=== PATIENT | female | born 1960 ===

== ENCOUNTER 2018-10-20 11:48 | Emergency (ER) | payer MEDICAID, OTHER ==
[2018-10-20 11:59] VITALS: BMI 28.5
[2018-10-20 12:01] VITALS: TEMP 97.9
[2018-10-20 12:26] LABS: SQUAMOUS EPITHIAL 1 /hpf (0-5); URINE BACTERIA RARE (<OCC); URINE BILIRUBIN NEGATIVE (NEGATIVE); URINE BLOOD NEGATIVE (NEGATIVE); URINE CLARITY Clear (Clear); URINE COLOR Straw (YELLOW); URINE GLUCOSE (UA) NORMAL (Normal); URINE PROTEIN NEGATIVE (NEGATIVE); URINE UROBILINOGEN NORMAL mg/dL (0.2-1.0)
[2018-10-20 12:27] LABS: URINE LEUKOCYTE ESTERASE TRACE Leu/uL (Negative)
[2018-10-20] MEDS ORDERED: DiphenhydrAMINE 50 mg/ml Inj IVP STA (13:03)
[2018-10-20] MEDS ORDERED: Sodium Chloride 0.9% 1,000 ML IV ONE (13:03)
[2018-10-20] MEDS ORDERED: DiphenhydrAMINE 50 mg/ml Inj ONE (13:12)
[2018-10-20 13:24] LABS: BASO # 0.1 K/uL (0.0-0.2); EOS # 0.1 K/uL (0.0-0.7); HEMOGLOBIN 13.8 g/dL (11.0-16.0); LYMPH # 1.5 K/uL (1.0-4.3); LYMPH % 21.5 % (20.0-40.0); MEAN CORPUSCULAR HEMOGLOBIN 28.1 pg (27.0-31.0); MEAN CORPUSCULAR HGB CONC 33.5 g/dL (33.0-37.0); MEAN PLATELET VOLUME 8.4 fL (7.2-11.7); MONO # 0.5 K/uL (0.0-0.8); MONO % 7.7 % (0.0-10.0); NEUT # 4.7 K/uL (1.8-7.0); NEUT % 67.8 % (50.0-75.0); RBC 4.9 Mil/uL (3.80-5.20)
[2018-10-20 13:40] LABS: ALB/GLOB RATIO 1.4 (1.0-2.1); ALBUMIN 4.7 g/dL (3.5-5.0); BLOOD UREA NITROGEN 12 mg/dL (7-17); CALCIUM 9.5 mg/dl (8.6-10.4); GFR NON-AFRICAN AMERICAN > 60
[2018-10-20 13:46] LABS: ALT/SGPT 28 U/L (9-52); AST/SGOT 37 U/L (14-36)
--- NOTE | 2018-10-20 14:21 | C.PDOC ---
History Of Present Illness 58 year old female, whose past medical history includes Lupus, presents to the ED for evaluation of congestion which started yesterday and dizziness since 0400 today. Patient reports a room spinning sensation when moving her head. She also reports nausea, vomiting, headache, and numbness to his legs. Patient denies abdominal pain and back pain at this time. Time Seen by Provider: 10/20/18 12:16 Chief Complaint (Nursing): Dizziness/Lightheaded History Per: Patient History/Exam Limitations: no limitations Onset/Duration Of Symptoms: Hrs Current Symptoms Are (Timing): Still Present Associated Symptoms Preceding Syncopal Episode: No Predromal Symptoms (Sudden Onset), Vertigo Worse With Change In Head Position Fall Associated With With Symptoms: No Past Medical History Reviewed: Historical Data, Nursing Documentation, Vital Signs Vital Signs: Last Vital Signs Temp 97.9 F 10/20/18 11:55 Pulse 64 10/20/18 11:55 Resp 20 10/20/18 11:55 BP 146/84 10/20/18 11:55 Pulse Ox 97 10/20/18 11:55 - Medical History PMH: No Chronic Diseases Surgical History: No Surg Hx Family History: States: Unknown Family Hx - Social History Hx Alcohol Use: No Hx Substance Use: No Review Of Systems Constitutional: Positive for: Weakness ENT: Positive for: Nose Congestion Gastrointestinal: Positive for: Nausea, Vomiting. Negative for: Abdominal Pain Musculoskeletal: Negative for: Back Pain Neurological: Positive for: Headache Physical Exam - Physical Exam Appears: Non-toxic, No Acute Distress Skin: Normal Color, Warm, Dry, No Pale, No Rash Head: Atraumatic, Normacephalic Eye(s): bilateral: Normal Inspection Ear(s): Left: Other (fluid noted ), Right: Normal Oral Mucosa: Moist Neck: Supple Chest: Symmetrical, No Deformity, No Tenderness Cardiovascular: Rhythm Regular, No Murmur Extremity: Normal ROM, Capillary Refill (less than 2 seconds ) Neurological/Psych: Oriented x3, Normal Speech, Normal Cognition ED Course And Treatment - Laboratory Results Result Diagrams: 10/20/18 13:16 10/20/18 13:16 O2 Sat by Pulse Oximetry: 97 (on RA) Pulse Ox Interpretation: Normal Medical Decision Making Medical Decision Making: Progress: Bloodwork, urinalysis, CXR ordered and reviewed. Benadryl IVP, Reglan IVP, and IV Fluids given. On re-exam, the patient is resting comfortably and improvement of symptoms. Lungs are CTA, heart is RRR, abdomen is soft, non-tender and tolerating PO well. Follow up with the medical doctor within 1-2 days. Return if worsened. Disposition - Disposition Referrals: [facility] [Outside] Disposition: HOME/ ROUTINE Disposition Time: 15:10 Condition: STABLE Additional Instructions: Follow up with the medical doctor within 1-2 days. Return if worsened. Prescriptions: Loratadine [Claritin] 10 mg PO DAILY #10 tab Meclizine HCl 25 mg PO TID PRN #25 tablet PRN Reason: Dizziness Instructions: Vertigo (a Type of Dizziness) Forms: [employer] (Jamaican) - Clinical Impression Clinical Impression: Vertigo - PA / SQL TECH / Resident Statement MD/DO has reviewed & agrees with the documentation as recorded. - Scribe Statement The provider has reviewed the documentation as recorded by the Scribe (Caprice Guzman) All medical record entries made by the Scribe were at my direction and personally dictated by me. I have reviewed the chart and agree that the record accurately reflects my personal performance of the history, physical exam, medical decision making, and the department course for this patient. I have also personally directed, reviewed, and agree with the discharge instructions and disposition.
[2018-10-20 15:21] VITALS: BP 132/81; PULSE 79; RESP 16
[2018-10-20 15:33] VITALS: O2SAT 97
--- NOTE | 2018-10-20 16:47 | RAD ---
Date of service: 10/20/2018 PROCEDURE: CHEST RADIOGRAPH, 1 VIEW HISTORY: abd pain COMPARISON: None available. FINDINGS: LUNGS: Clear. Lung volumes shallow PLEURA: No pneumothorax or pleural fluid seen. CARDIOVASCULAR: There is apparent presence of aortic atherosclerotic calcification on x-ray. Mild cardiomegaly. Probable top-normal pulmonary venous status OSSEOUS STRUCTURES: No significant abnormalities. VISUALIZED UPPER ABDOMEN: Normal. OTHER FINDINGS: None. IMPRESSION: No acute pulmonary pathology. Other findings as above.
--- NOTE | 2018-10-21 12:27 | CARD ---
APPROVED REPORT Date of service: 10/20/2018 EKG Measurement Heart [id number] <Conclusion> Normal sinus rhythm Normal ECG
== END 2018-10-20 15:20 | disposition home or self-care (01) ==
LOC: C.ER 11:48
DX: R42 Dizziness and giddiness (principal)
CPT/HCPCS: 71045; 80053; 81001; 85025; 93005; 96361; 96374; 96375; 99285; J1200; J2765; J7030

== ENCOUNTER 2019-03-20 17:44 | Emergency (ER) | payer MEDICAID, OTHER ==
[2019-03-20 17:45] VITALS: BMI 28.5
[2019-03-20 18:17] VITALS: RESP 18
[2019-03-20] MEDS ORDERED: Aspirin 325 mg EC Tablets PO STA (19:50)
--- NOTE | 2019-03-20 19:50 | C.PDOC ---
History Of Present Illness Patient presents to the ED c/o chest tightness. Patient states she feels like her lupus is flaring up. Patient able to speak in full sentences. Patient denies fever, chills, headache, SOB, palpitations, rash, injury, fall, trauma. Time Seen by Provider: 03/20/19 19:49 Chief Complaint (Nursing): Chest Pain History Per: Patient History/Exam Limitations: no limitations Onset/Duration Of Symptoms: Days Quality: Tightness Recent travel outside of the [place]: No Additional History Per: Patient Past Medical History Reviewed: Historical Data, Nursing Documentation, Vital Signs Vital Signs: Last Vital Signs Temp 97.7 F 03/20/19 18:14 Pulse 69 03/20/19 18:14 Resp 18 03/20/19 18:14 BP 143/73 03/20/19 18:14 Pulse Ox 96 03/20/19 18:14 - Medical History Other PMH: Lupus Surgical History: No Surg Hx Family History: States: No Known Family Hx - Social History Hx Alcohol Use: No Hx Substance Use: No - Immunization History Hx Tetanus Toxoid Vaccination: No Hx Influenza Vaccination: Yes Hx Pneumococcal Vaccination: No Review Of Systems Constitutional: Negative for: Fever, Chills Cardiovascular: Positive for: Chest Pain (tightness). Negative for: Palpitations Respiratory: Negative for: Cough, Shortness of Breath Gastrointestinal: Negative for: Nausea, Vomiting, Abdominal Pain Skin: Negative for: Rash Neurological: Negative for: Weakness, Numbness, Headache, Dizziness Physical Exam - Physical Exam Appears: Non-toxic, Other (anxious, tearfull ) Skin: Warm, Dry Head: Normacephalic Eye(s): bilateral: PERRL, EOMI, Other (lens) Neck: Supple Chest: Symmetrical, Tenderness (anterior chest wall ) Cardiovascular: Rhythm Regular Respiratory: No Rales, No Rhonchi, No Wheezing Gastrointestinal/Abdominal: Soft, No Tenderness, No Distention Extremity: Bilateral: Atraumatic, Normal Color And Temperature, Normal ROM Neurological/Psych: Oriented x3, Normal Speech, Normal Cognition Gait: Steady ED Course And Treatment - Laboratory Results Result Diagrams: 03/20/19 20:51 03/20/19 20:31 ECG: Interpreted By Me, Viewed By Me ECG Rhythm: Sinus Rhythm, Nonspecific Changes O2 Sat by Pulse Oximetry: 96 (ON RA) Pulse Ox Interpretation: Normal - Radiology CXR: Interpreted by Me, Viewed By Me CXR Interpretation: No: Infiltrates, Fracture, Pnemothorax Progress Note: Plan: - EKG. - Labs. - CXR. - Aspirin 325 mg PO. - UA Reevaluation Time: 22:39 Reassessment Condition: Improved Medical Decision Making Medical Decision Making: Upon provider reevaluation patient is feeling better, is medically stable, and requires no further treatment in the ED at this time. Patient will be discharged home with Rx for ativan . Counseling was provided and all questions were answered regarding diagnosis and need for follow up with dr torres. There is agreement to discharge plan. Return if symptoms persist or worsen. Disposition Counseled Patient/Family Regarding: Studies Performed, Diagnosis, Need For Followup, Rx Given - Disposition Referrals: Carolina Torres MD [Non-Staff] - Disposition: HOME/ ROUTINE Disposition Time: 19:50 Condition: FAIR Additional Instructions: Please return if symptoms recur Prescriptions: Lorazepam [Ativan] 0.5 mg PO BID PRN #10 tab PRN Reason: Anxiety Instructions: Anxiety, Adult (DC) Forms: [employer] (Malay) - Clinical Impression Clinical Impression: Anxiety - Scribe Statement The provider has reviewed the documentation as recorded by the Scribe Gio Gillette All medical record entries made by the Scribe were at my direction and personally dictated by me. I have reviewed the chart and agree that the record a ccurately reflects my personal performance of the history, physical exam, medical decision making, and the department course for this patient. I have also personally directed, reviewed, and agree with the discharge instructions and disposition.
[2019-03-20 20:55] LABS: BASO % 0.3 % (0.0-2.0); EOS # 0.3 K/uL (0.0-0.7); EOS % 3.9 % (0.0-4.0); HEMOGLOBIN 13.3 g/dL (11.0-16.0); LYMPH # 2.8 K/uL (1.0-4.3); LYMPH % 37.7 % (20.0-40.0); MEAN CELL VOLUME 84.1 fL (81.0-99.0); MEAN CORPUSCULAR HEMOGLOBIN 27.6 pg (27.0-31.0); MEAN CORPUSCULAR HGB CONC 32.8 g/dL (33.0-37.0); MONO # 0.8 K/uL (0.0-0.8); MONO % 10.4 % (0.0-10.0); NEUT # 3.5 K/uL (1.8-7.0); NEUT % 47.7 % (50.0-75.0); RBC 4.81 Mil/uL (3.80-5.20); RED CELL DISTRIBUTION WIDTH 13.2 % (11.5-14.5); WHITE BLOOD COUNT 7.3 K/uL (4.8-10.8)
[2019-03-20 21:08] LABS: INR 1.1; PROTHROMBIN TIME 12.3 SECONDS (9.7-12.2)
[2019-03-20 21:09] LABS: ALB/GLOB RATIO 1.3 (1.0-2.1); ALBUMIN 4.6 g/dL (3.5-5.0); ALT/SGPT 26 U/L (9-52); AST/SGOT 28 U/L (14-36); BLOOD UREA NITROGEN 12 mg/dL (7-17); CALCIUM 9.6 mg/dl (8.6-10.4); GFR NON-AFRICAN AMERICAN > 60
[2019-03-20 21:10] LABS: URINE BILIRUBIN NEGATIVE (NEGATIVE); URINE BLOOD NEGATIVE (NEGATIVE); URINE CLARITY Clear (Clear); URINE COLOR Straw (YELLOW); URINE GLUCOSE (UA) NORMAL (Normal); URINE LEUKOCYTE ESTERASE NEG Leu/uL (Negative); URINE PROTEIN NEGATIVE (NEGATIVE); URINE UROBILINOGEN NORMAL mg/dL (0.2-1.0)
[2019-03-20 22:49] VITALS: BP 129/83; PULSE 59; TEMP 97.5; O2SAT 97
--- NOTE | 2019-03-21 09:13 | RAD ---
Chest x-ray single frontal view HISTORY: Chest pain. Comparison: 10/20/2018 Findings: Mild venous congestion. Bilateral hilar prominence. Tortuous aorta with atherosclerotic calcification at the aortic knob. Degenerative changes in the spine and shoulders. Impression: Mild venous congestion. Bilateral hilar prominence. Tortuous aorta with atherosclerotic calcification at the aortic knob.
--- NOTE | 2019-03-21 12:39 | CARD ---
APPROVED REPORT Date of service: 03/20/2019 EKG Measurement Heart [id number] <Conclusion> Normal sinus rhythm Normal ECG
== END 2019-03-20 22:58 | disposition home or self-care (01) ==
LOC: C.ER 17:44
DX: F41.9 Anxiety disorder, unspecified (principal); M32.9 Systemic lupus erythematosus, unspecified
CPT/HCPCS: 71045; 80053; 81001; 84484; 85025; 85610; 85730; 93005; 96374; 99285; J1885

== ENCOUNTER 2019-03-27 07:44 | Outpatient (CLI) | payer OTHER | END 2019-03-27 07:45 | disposition home or self-care (01) | LOC: C.LAB 07:44 | DX: E66.3 Overweight (principal) ==

== ENCOUNTER 2019-04-01 07:56 | Outpatient (CLI) | payer OTHER | END 2019-04-01 07:57 | disposition home or self-care (01) | LOC: C.CARD 07:56 | DX: R00.2 Palpitations (principal) ==

== ENCOUNTER 2019-04-06 16:05 | Outpatient (CLI) | payer OTHER | END 2019-04-06 16:06 | disposition home or self-care (01) | LOC: C.LAB 16:05 | DX: R94.6 Abnormal results of thyroid function studies (principal) ==

== ENCOUNTER 2019-04-07 09:56 | Outpatient (CLI) | payer OTHER | END 2019-04-07 09:57 | disposition home or self-care (01) | LOC: C.DIABED 09:56 | DX: E78.5 Hyperlipidemia, unspecified (principal); R31.9 Hematuria, unspecified ==

== ENCOUNTER 2019-04-17 11:45 | Emergency (ER) | payer OTHER ==
[2019-04-17 11:46] VITALS: BMI 28.5
[2019-04-17 11:57] VITALS: RESP 20; TEMP 97.8; O2SAT 99
--- NOTE | 2019-04-17 12:03 | C.PDOC ---
History Of Present Illness 58 yr old F w/ hx of HLD, lupus, hysterectomy p/w suprapubic abdominal pain and dysuria. Pt notes x3d of these symptoms. No back pain or RLQ or LLQ or upper abdominal pain. No flank pain. No rash or vaginal d/c. No intermittent type pain. No fall or trauma. No headache, constipation or diarrhea. No dark or bloody stool. No nausea or vomiting. She notes that she was recently treated in the clinic here 3 weeks ago for UTI and hematuria. She notes that she does not remember the antibiotic that she took for it. She notes completing the antibiotic 2 weeks prior. PMD: Carolina Torres Time Seen by Provider: 04/17/19 12:03 Chief Complaint (Nursing): Abdominal Pain Past Medical History Vital Signs: Last Vital Signs Temp 97.8 F 04/17/19 11:53 Pulse 69 04/17/19 11:53 Resp 20 04/17/19 11:53 BP 154/88 H 04/17/19 11:53 Pulse Ox 99 04/17/19 11:53 Primary Care Provider: Carolina Torres Family History: States: Unknown Family Hx - Social History Hx Alcohol Use: No Hx Substance Use: No - Immunization History Hx Tetanus Toxoid Vaccination: No Hx Influenza Vaccination: Yes Hx Pneumococcal Vaccination: No Review Of Systems Constitutional: Negative for: Fever, Chills, Sweats, Weakness, Malaise Eyes: Negative for: Pain, Vision Change ENT: Negative for: Ear Pain, Ear Discharge, Nose Pain, Nose Discharge, Nose Congestion, Mouth Pain, Mouth Swelling Cardiovascular: Negative for: Chest Pain, Palpitations, Orthopnea, Paroxysmal Noc. Dyspnea, Edema, Light Headedness Respiratory: Negative for: Cough, Shortness of Breath, Hemoptysis, SOB with Excertion, Pleuritic Pain, Sputum, Wheezing Gastrointestinal: Positive for: Abdominal Pain. Negative for: Nausea, Vomiting, Diarrhea, Constipation, Melena, Hematochezia, Hematemesis Genitourinary: Positive for: Dysuria. Negative for: Frequency, Incontinence, Hematuria, Vaginal Discharge, Vaginal Bleeding, Pelvic Pain Musculoskeletal: Negative for: Neck Pain, Shoulder Pain, Arm Pain, Back Pain, Hand Pain, Leg Pain Skin: Negative for: Rash, Lesions, Jaundice Neurological: Negative for: Weakness, Numbness, Incoordination, Confusion, Seizures, Altered Mental Status, Headache Psych: Negative for: Anxiety, Depression Physical Exam - Physical Exam Appears: Well, Non-toxic, No Acute Distress Skin: Normal Color, Warm, Dry Head: Atraumatic, Normacephalic Eye(s): bilateral: Normal Inspection, PERRL, EOMI Nose: Normal Oral Mucosa: Moist Tongue: Normal Appearing Lips: Normal Appearing Gingiva: Normal Appearing Throat: Normal, No Erythema, No Exudate, No Drooling Neck: Normal, Supple, Other (no meningeal signs) Lymphatic: No Adenopathy Cardiovascular: Rhythm Regular Respiratory: Normal Breath Sounds Gastrointestinal/Abdominal: Normal Exam, Soft, No Tenderness, No Organomegaly, No Mass, No Distention, No Guarding, No Rebound, No Hernia, No Ascites Back: Normal Inspection, No CVA Tenderness, No Vertebral Tenderness Extremity: Normal ROM Extremity: Bilateral: Atraumatic Neurological/Psych: Oriented x3, Normal Speech, Normal Cognition, Normal Cranial Nerves, No Cerebellar Signs, Normal Motor Gait: Steady ED Course And Treatment O2 Sat by Pulse Oximetry: 99 Medical Decision Making Medical Decision Makin yr old female w/ hx of lupus, hld p/w dysuria, suprapubic abd pain. No abd tenderness on exam. No CVAT or midline pain. NO enuresis or encoparesis. Recent abx 3 weeks prior w/ out diarrhea. No dark or bloody stool. PT notes she does not want any pain meds at this time. Overall well appearing. Likely UTI. No vaginal complaints / rashes- pt has a hx of hysterectomy. No depression / si / hi / anxiety. pending UA 1308 hematuria, UTI on labs w/ hemtauria no CVAT or abd tenderness on repeat exam pt in NAD, afebrile, non tachy will rx w/ outpt abx, f/u and return indications. Pt agreeable to plan Disposition - Disposition Referrals: Andrew Vaughan MD [Staff Provider] - Carolina Torres MD [Non-Staff] - [facility] [Outside] [facility] [Outside] [facility] [Outside] Disposition: HOME/ ROUTINE Disposition Time: 13:10 Condition: STABLE Additional Instructions: YOU HAVE HAD ANOTHER URINARY TRACT INFECTION AND BLOOD IN YOUR URINE. YOU MUST FOLLOW UP WITH A UROLOGIST SOON POSSIBLE GIVEN RECURRENT HEMATURIA Prescriptions: Cephalexin [Keflex] 250 mg PO Q6H 5 Days #20 capsule Instructions: Blood in the Urine (Hematuria) in Adults, Urinary Tract Infection, Adult (DC) Forms: [employer] (Dutch) - Clinical Impression Clinical Impression: Hematuria, UTI (urinary tract infection)
[2019-04-17 13:00] LABS: SQUAMOUS EPITHIAL 1 /hpf (0-5); URINE BACTERIA MOD (<OCC); URINE BILIRUBIN NEGATIVE (NEGATIVE); URINE BLOOD 2+ (NEGATIVE); URINE CLARITY Hazy (Clear); URINE COLOR Yellow (YELLOW); URINE GLUCOSE (UA) NORMAL (Normal); URINE LEUKOCYTE ESTERASE 2+ Leu/uL (Negative); URINE PROTEIN 1+ mg/dL (NEGATIVE); URINE UROBILINOGEN NORMAL mg/dL (0.2-1.0)
[2019-04-17 13:37] VITALS: BP 137/75; PULSE 63
== END 2019-04-17 13:37 | disposition home or self-care (01) ==
LOC: C.ER 11:45
DX: N39.0 Urinary tract infection, site not specified (principal); R31.9 Hematuria, unspecified